=== PATIENT | male | born 1985 | race Hispanic/Latino ===

== ENCOUNTER 2021-04-03 07:17 | Emergency (ER) | payer SELFPAY ==
[2021-04-03] MEDS ORDERED: Morphine 4 MG/ML VIAL ONE (07:40)
[2021-04-03] MEDS ORDERED: Ondansetron PF 4 MG/2 ML Vial ONE (07:40)
[2021-04-03 08:00] LABS: #Lymphocytes 1.2 thou/uL (1.20-3.40); #Monocytes 0.4 thou/uL (0.11-0.59); #Neutrophils 2.5 thou/uL (1.40-6.50); %Basophils 0.7 % (0.0-1.0); %Lymphocytes 29.3 % (21.0-51.0); %Monocytes 9.5 % (0.0-10.0); %Neutrophils 59.6 % (42.0-75.0); Hemoglobin 15.5 g/dL (14.0-18.0); Mean Corpuscular HGB CONC 35.6 g/dL (32.0-36.0); Mean Corpuscular Hemoglobin 35.7 pg (27.0-31.0); Mean Platelet Volume 7.7 fL (7.4-10.4); Platelet Count 240 thou/uL (130-400); RBC Distribution Width 11.4 % (11.5-14.5); Red Blood Cell (RBC) Count 4.33 mill/uL (4.70-6.10); White Blood Cell (WBC) Count 4.2 thou/uL (4.8-10.8)
[2021-04-03 08:20] LABS: ALT (SGPT) 14 U/L (8-55); AST (SGOT) 19 U/L (5-34); Albumin 4.4 g/dL (3.5-5.0); Alkaline Phosphatase 58 U/L (40-110); Anion Gap 12 mmol/L (10-20); BUN (Urea Nitrogen) 8 mg/dL (8.9-20.6); Bilirubin, Total 1.9 mg/dL (0.2-1.2); Calc. Creatinine Clearance 0 mL/min (70-130); Calcium 9.5 mg/dL (7.8-10.44); Carbon Dioxide 25 mmol/L (22-29); Chloride 105 mmol/L (98-107); Globulin 3.2 g/dL (2.4-3.5); Glucose 97 mg/dL (70-105); Lipase 22 U/L (8-78); Potassium 3.3 mmol/L (3.5-5.1); Protein, Total 7.6 g/dL (6.0-8.3); Sodium 139 mmol/L (136-145)
[2021-04-03] MEDS ORDERED: Iopamidol-370 76% 500 ML 1 ML ONE (11:07)
== END 2021-04-03 09:31 | disposition home or self-care (01) ==
LOC: ERS 07:17
DX: R10.9 Unspecified abdominal pain (principal); R10.814 Left lower quadrant abdominal tenderness; R10.813 Right lower quadrant abdominal tenderness; R19.7 Diarrhea, unspecified
CPT/HCPCS: 71045; 74177; 80053; 83690; 85025; 96374; 96375; J2270; J2405; Q9967

== ENCOUNTER 2021-05-07 06:24 | Emergency (ER) | payer SELFPAY ==
[2021-05-07] MEDS ORDERED: Ondansetron PF 4 MG/2 ML Vial ONE (06:42)
[2021-05-07] MEDS ORDERED: Morphine 4 MG/ML VIAL ONE ×2 (06:47→09:10)
[2021-05-07 07:05] LABS: #Lymphocytes 1.2 thou/uL (1.20-3.40); #Monocytes 0.6 thou/uL (0.11-0.59); #Neutrophils 4.6 thou/uL (1.40-6.50); %Basophils 0.6 % (0.0-1.0); %Eosinophils 0.3 % (0.0-10.0); %Lymphocytes 19.1 % (21.0-51.0); %Monocytes 9.1 % (0.0-10.0); %Neutrophils 70.9 % (42.0-75.0); Hemoglobin 16.4 g/dL (14.0-18.0); Mean Corpuscular HGB CONC 35.7 g/dL (32.0-36.0); Mean Platelet Volume 8.3 fL (7.4-10.4); Platelet Count 259 thou/uL (130-400); RBC Distribution Width 11.5 % (11.5-14.5); Red Blood Cell (RBC) Count 4.56 mill/uL (4.70-6.10); White Blood Cell (WBC) Count 6.5 thou/uL (4.8-10.8)
[2021-05-07 07:21] LABS: ALT (SGPT) 17 U/L (8-55); AST (SGOT) 22 U/L (5-34); Albumin 4.5 g/dL (3.5-5.0); Alkaline Phosphatase 65 U/L (40-110); Anion Gap 16 mmol/L (10-20); BUN (Urea Nitrogen) 13 mg/dL (8.9-20.6); Bilirubin, Total 2.9 mg/dL (0.2-1.2); Calc. Creatinine Clearance 0 mL/min (70-130); Carbon Dioxide 22 mmol/L (22-29); Chloride 104 mmol/L (98-107); Globulin 3.7 g/dL (2.4-3.5); Glucose 114 mg/dL (70-105); Lipase 28 U/L (8-78); Potassium 3.3 mmol/L (3.5-5.1); Protein, Total 8.2 g/dL (6.0-8.3); Sodium 139 mmol/L (136-145)
[2021-05-07] MEDS ORDERED: Lidocaine Viscous Sol 2% 15 ml UD Cup ONE (07:57)
[2021-05-07] MEDS ORDERED: Pantoprazole 40 MG VIAL ONE (07:57)
[2021-05-07] MEDS ORDERED: Mag-Al 1200 mg/1200 mg/30 ML UDCUP ONE (07:57)
[2021-05-07] MEDS ORDERED: Iopamidol-370 76% 500 ML 1 ML ONE (09:40)
== END 2021-05-07 11:10 | disposition home or self-care (01) ==
LOC: ERS 06:24
DX: K20.90 Esophagitis, unspecified without bleeding (principal); E80.6 Other disorders of bilirubin metabolism
CPT/HCPCS: 74177; 80053; 83690; 84484; 85025; 96374; 96375; 96376; C9113; J2270; J2405; Q9967

== ENCOUNTER 2021-06-08 04:29 | Emergency (ER) | payer SELFPAY ==
[2021-06-08] MEDS ORDERED: Haloperidol Lactate 5 MG/ML VIAL ONE (04:59)
[2021-06-08 05:58] LABS: #Lymphocytes 1.5 thou/uL (1.20-3.40); #Monocytes 0.4 thou/uL (0.11-0.59); #Neutrophils 2.2 thou/uL (1.40-6.50); %Basophils 0.1 % (0.0-1.0); %Lymphocytes 35.6 % (21.0-51.0); %Monocytes 9.4 % (0.0-10.0); Hemoglobin 15.1 g/dL (14.0-18.0); Mean Corpuscular HGB CONC 36.2 g/dL (32.0-36.0); Mean Corpuscular Volume 99.4 fL (78.0-98.0); Mean Platelet Volume 7.9 fL (7.4-10.4); Platelet Count 224 thou/uL (130-400); RBC Distribution Width 11.2 % (11.5-14.5); White Blood Cell (WBC) Count 4.1 thou/uL (4.8-10.8)
[2021-06-08] MEDS ORDERED: Sucralfate 1 GM/10 ML UDCUP ONE (06:12)
[2021-06-08 06:24] LABS: ALT (SGPT) 21 U/L (8-55); AST (SGOT) 22 U/L (5-34); Albumin 4.2 g/dL (3.5-5.0); Alkaline Phosphatase 56 U/L (40-110); Anion Gap 14 mmol/L (10-20); BUN (Urea Nitrogen) 7 mg/dL (8.9-20.6); Bilirubin, Total 1.2 mg/dL (0.2-1.2); Calc. Creatinine Clearance 0 mL/min (70-130); Calcium 9.4 mg/dL (7.8-10.44); Carbon Dioxide 20 mmol/L (22-29); Chloride 105 mmol/L (98-107); Globulin 3.2 g/dL (2.4-3.5); Glucose 89 mg/dL (70-105); Lipase 39 U/L (8-78); Potassium 3.3 mmol/L (3.5-5.1); Protein, Total 7.4 g/dL (6.0-8.3); Sodium 136 mmol/L (136-145)
[2021-06-08] MEDS ORDERED: diphenhydrAMINE 50 MG/ML VIAL ONE (06:58)
[2021-06-08 07:26] LABS: Bilirubin Negative (Negative); Blood, Urine Negative (Negative); Clarity Clear (Clear); Glucose, Urine (Dipstick) Normal (Negative); Ketone, Urine 20 mg/dL (Negative); Leukocyte Negative Leu/uL (Negative); Nitrite Negative (Negative); Protein, Urine (Dipstick) 10 mg/dL (Neg-Trace); Specific Gravity, Urine 1.019 (1.002-1.036); Urobilinogen 3 mg/dL (Less than 2)
[2021-06-08 07:32] LABS: Amphetamine Not Detected (NotDetected); Barbiturates Screen Not Detected (NotDetected); Benzodiazepine Screen Not Detected (NotDetected); Cocaine Metabolite Screen Not Detected (NotDetected); Methadone Not Detected (NotDetected); Methamphetamine Not Detected (NotDetected); Opiate Screen Not Detected (NotDetected); Oxycodone Screen Not Detected (NotDetected); Phencyclidine (PCP) Not Detected (NotDetected); THC/Cannabinoid Screen Detected (NotDetected); Tricyclic Screen Not Detected (NotDetected)
== END 2021-06-08 07:34 | disposition home or self-care (01) ==
LOC: ERS 04:29
DX: R10.13 Epigastric pain (principal); R11.2 Nausea with vomiting, unspecified; Z79.899 Other long term (current) drug therapy
CPT/HCPCS: 80053; 80306; 81003; 83690; 85025; 96374; 96375; J1200; J1630

== ENCOUNTER 2021-06-21 06:23 | Emergency (ER) | payer SELFPAY ==
[2021-06-21 08:17] LABS: #Lymphocytes 1.1 thou/uL (1.20-3.40); #Monocytes 0.4 thou/uL (0.11-0.59); #Neutrophils 3.6 thou/uL (1.40-6.50); %Basophils 0.1 % (0.0-1.0); %Eosinophils 0.7 % (0.0-10.0); %Lymphocytes 21.8 % (21.0-51.0); %Monocytes 8.4 % (0.0-10.0); Hemoglobin 15.7 g/dL (14.0-18.0); Mean Corpuscular HGB CONC 34.7 g/dL (32.0-36.0); Mean Corpuscular Hemoglobin 35.2 pg (27.0-31.0); Mean Platelet Volume 7.7 fL (7.4-10.4); Platelet Count 231 thou/uL (130-400); RBC Distribution Width 11.4 % (11.5-14.5); Red Blood Cell (RBC) Count 4.47 mill/uL (4.70-6.10); White Blood Cell (WBC) Count 5.2 thou/uL (4.8-10.8)
[2021-06-21 08:23] LABS: Bilirubin Negative (Negative); Blood, Urine Negative (Negative); Clarity Clear (Clear); Glucose, Urine (Dipstick) Normal (Negative); Ketone, Urine 40 mg/dL (Negative); Leukocyte Negative Leu/uL (Negative); Nitrite Negative (Negative); Protein, Urine (Dipstick) 10 mg/dL (Neg-Trace); Specific Gravity, Urine 1.024 (1.002-1.036); Urobilinogen Normal mg/dL (Less than 2); pH, Urine 6.5 (5.0-9.0)
[2021-06-21 08:30] LABS: ALT (SGPT) 30 U/L (8-55); AST (SGOT) 31 U/L (5-34); Albumin 4.4 g/dL (3.5-5.0); Alkaline Phosphatase 61 U/L (40-110); Anion Gap 13 mmol/L (10-20); BUN (Urea Nitrogen) 12 mg/dL (8.9-20.6); Bilirubin, Total 1.5 mg/dL (0.2-1.2); Calc. Creatinine Clearance 0 mL/min (70-130); Calcium 9.8 mg/dL (7.8-10.44); Carbon Dioxide 23 mmol/L (22-29); Chloride 105 mmol/L (98-107); Globulin 3.2 g/dL (2.4-3.5); Glucose 105 mg/dL (70-105); Potassium 3.5 mmol/L (3.5-5.1); Protein, Total 7.6 g/dL (6.0-8.3); Sodium 137 mmol/L (136-145)
[2021-06-21] MEDS ORDERED: Morphine 4 MG/ML VIAL ONE (09:02)
[2021-06-21] MEDS ORDERED: Famotidine/PF 20 mg/2ml Vial ONE (09:02)
[2021-06-21] MEDS ORDERED: Mag-Al 1200 mg/1200 mg/30 ML UDCUP ONE (09:02)
[2021-06-21] MEDS ORDERED: Acetaminophen 500 MG TAB ONE (09:02)
[2021-06-21] MEDS ORDERED: Ondansetron PF 4 MG/2 ML Vial ONE ×2 (09:02→10:23)
[2021-06-21] MEDS ORDERED: Lidocaine Viscous Sol 2% 15 ml UD Cup ONE (09:02)
[2021-06-21] MEDS ORDERED: diphenhydrAMINE 50 MG/ML VIAL ONE (10:23)
[2021-06-21] MEDS ORDERED: Haloperidol Lactate 5 MG/ML VIAL ONE (10:23)
[2021-06-21] MEDS ORDERED: Iopamidol-370 76% 500 ML 1 ML ONE (13:29)
== END 2021-06-21 11:28 | disposition home or self-care (01) ==
LOC: ERS 06:23
DX: R11.2 Nausea with vomiting, unspecified (principal); R10.13 Epigastric pain; M54.5 Low back pain; K21.9 Gastro-esophageal reflux disease without esophagitis; Z87.891 Personal history of nicotine dependence
CPT/HCPCS: 36415; 74177; 80053; 81003; 83690; 85025; 96374; 96375; 96376; J1200; J1630; J2270; J2405; Q9967; S0028

== ENCOUNTER 2021-08-12 15:06 | Emergency (ER) | payer SELFPAY ==
[2021-08-12] MEDS ORDERED: Ondansetron PF 4 MG/2 ML Vial ONE (15:39)
[2021-08-12] MEDS ORDERED: Mag-Al 1200 mg/1200 mg/30 ML UDCUP ONE ×2 (15:51→15:54)
[2021-08-12] MEDS ORDERED: Lidocaine 2% PF 100 mg/5 ml Syringe ONE (15:51)
[2021-08-12] MEDS ORDERED: Lidocaine Viscous Sol 2% 15 ml UD Cup ONE (15:54)
[2021-08-12 15:57] LABS: #Lymphocytes 1.1 thou/uL (1.20-3.40); #Monocytes 0.5 thou/uL (0.11-0.59); #Neutrophils 3.9 thou/uL (1.40-6.50); %Basophils 0.4 % (0.0-1.0); %Eosinophils 0.2 % (0.0-10.0); %Neutrophils 70.4 % (42.0-75.0); Hemoglobin 16.9 g/dL (14.0-18.0); Mean Corpuscular HGB CONC 35.5 g/dL (32.0-36.0); Mean Corpuscular Hemoglobin 35.6 pg (27.0-31.0); Mean Platelet Volume 7.6 fL (7.4-10.4); Platelet Count 222 thou/uL (130-400); RBC Distribution Width 11.3 % (11.5-14.5); Red Blood Cell (RBC) Count 4.74 mill/uL (4.70-6.10); White Blood Cell (WBC) Count 5.6 thou/uL (4.8-10.8)
[2021-08-12 16:15] LABS: ALT (SGPT) 18 U/L (8-55); AST (SGOT) 25 U/L (5-34); Alkaline Phosphatase 52 U/L (40-110); Anion Gap 20 mmol/L (10-20); BUN (Urea Nitrogen) 11 mg/dL (8.9-20.6); Bilirubin, Total 1.9 mg/dL (0.2-1.2); Calc. Creatinine Clearance 0 mL/min (70-130); Calcium 9.2 mg/dL (7.8-10.44); Carbon Dioxide 17 mmol/L (22-29); Chloride 103 mmol/L (98-107); Globulin 2.7 g/dL (2.4-3.5); Glucose 111 mg/dL (70-105); Potassium 3.5 mmol/L (3.5-5.1); Protein, Total 6.7 g/dL (6.0-8.3); Sodium 136 mmol/L (136-145)
== END 2021-08-12 15:50 | disposition home or self-care (01) ==
LOC: ERS 15:06
DX: R11.2 Nausea with vomiting, unspecified (principal); R10.84 Generalized abdominal pain; K21.9 Gastro-esophageal reflux disease without esophagitis; Z87.891 Personal history of nicotine dependence
CPT/HCPCS: 80053; 85025; 96374; J2001; J2405

== ENCOUNTER 2021-11-05 22:59 | Emergency (ER) | payer SELFPAY ==
[2021-11-05 23:41] LABS: #Lymphocytes 0.8 thou/uL (1.20-3.40); #Monocytes 0.9 thou/uL (0.11-0.59); #Neutrophils 5.4 thou/uL (1.40-6.50); %Basophils 0.3 % (0.0-1.0); %Eosinophils 0.3 % (0.0-10.0); %Lymphocytes 11.2 % (21.0-51.0); %Monocytes 12.3 % (0.0-10.0); %Neutrophils 75.9 % (42.0-75.0); Hemoglobin 16.2 g/dL (14.0-18.0); Mean Corpuscular HGB CONC 34.6 g/dL (32.0-36.0); Mean Corpuscular Hemoglobin 35.3 pg (27.0-31.0); Mean Platelet Volume 6.8 fL (7.4-10.4); Platelet Count 270 thou/uL (130-400); RBC Distribution Width 11.2 % (11.5-14.5); Red Blood Cell (RBC) Count 4.59 mill/uL (4.70-6.10); White Blood Cell (WBC) Count 7.1 thou/uL (4.8-10.8)
[2021-11-05] MEDS ORDERED: Haloperidol Lactate 5 MG/ML VIAL ONE (23:54)
[2021-11-06 00:01] LABS: Bilirubin, Total 2.1 mg/dL (0.2-1.2); Calcium 9.9 mg/dL (7.8-10.44); Potassium 3.6 mmol/L (3.5-5.1)
[2021-11-06 00:06] LABS: Albumin 4.7 g/dL (3.5-5.0); Globulin 3.4 g/dL (2.4-3.5); Protein, Total 8.1 g/dL (6.0-8.3)
[2021-11-06 00:17] LABS: Critical Call Chemistry 21.6
[2021-11-06] MEDS ORDERED: Mag-Al 1200 mg/1200 mg/30 ML UDCUP ONE (00:36)
[2021-11-06] MEDS ORDERED: Lidocaine Viscous Sol 2% 15 ml UD Cup ONE (00:36)
== END 2021-11-06 01:30 | disposition home or self-care (01) ==
LOC: ERS 22:59
DX: R10.13 Epigastric pain (principal); R11.2 Nausea with vomiting, unspecified; Z87.891 Personal history of nicotine dependence
CPT/HCPCS: 36415; 80053; 83690; 85025; 96374; J1630

== ENCOUNTER 2021-12-19 08:58 | Emergency (ER) | payer SELFPAY ==
[2021-12-19] MEDS ORDERED: Ketorolac Tromethamine 30 MG/ML VIAL ONE (10:22)
[2021-12-19] MEDS ORDERED: Haloperidol Lactate 5 MG/ML VIAL ONE (10:22)
[2021-12-19 10:58] LABS: #Lymphocytes 0.6 thou/uL (1.20-3.40); #Monocytes 0.3 thou/uL (0.11-0.59); #Neutrophils 4.7 thou/uL (1.40-6.50); %Basophils 0.2 % (0.0-1.0); %Eosinophils 0.2 % (0.0-10.0); %Monocytes 5.2 % (0.0-10.0); %Neutrophils 83.4 % (42.0-75.0); Hemoglobin 16.1 g/dL (14.0-18.0); Mean Corpuscular HGB CONC 35.1 g/dL (32.0-36.0); Mean Corpuscular Hemoglobin 35.8 pg (27.0-31.0); Mean Platelet Volume 8.2 fL (7.4-10.4); Platelet Count 262 thou/uL (130-400); RBC Distribution Width 11.3 % (11.5-14.5); White Blood Cell (WBC) Count 5.7 thou/uL (4.8-10.8)
[2021-12-19 11:20] LABS: ALT (SGPT) 21 U/L (8-55); AST (SGOT) 26 U/L (5-34); Albumin 4.9 g/dL (3.5-5.0); Alkaline Phosphatase 62 U/L (40-110); Anion Gap 20 mmol/L (10-20); BUN (Urea Nitrogen) 12 mg/dL (8.9-20.6); Bilirubin, Total 2.2 mg/dL (0.2-1.2); Calc. Creatinine Clearance 0 mL/min (70-130); Calcium 10.1 mg/dL (7.8-10.44); Carbon Dioxide 19 mmol/L (22-29); Chloride 103 mmol/L (98-107); Globulin 3.4 g/dL (2.4-3.5); Glucose 104 mg/dL (70-105); Lipase 27 U/L (8-78); Potassium 3.5 mmol/L (3.5-5.1); Protein, Total 8.3 g/dL (6.0-8.3); Sodium 138 mmol/L (136-145)
[2021-12-19 11:56] LABS: Bacteria/HPF None Seen HPF (None Seen); Bilirubin Negative (Negative); Blood, Urine Negative (Negative); Clarity Clear (Clear); Glucose, Urine (Dipstick) Normal (Negative); Ketone, Urine 100 mg/dL (Negative); Leukocyte Negative Leu/uL (Negative); Nitrite Negative (Negative); Protein, Urine (Dipstick) 70 mg/dL (Neg-Trace); RBC/HPF 0-3 HPF (0-3); Specific Gravity, Urine 1.032 (1.002-1.036); Squamous Epithelial 0-3 HPF (0-3); Urobilinogen 3 mg/dL (Less than 2); WBC/HPF 0-3 HPF (0-3)
== END 2021-12-19 12:32 | disposition home or self-care (01) ==
LOC: ERS 08:58
DX: R10.84 Generalized abdominal pain (principal); R51.9 Headache, unspecified; R11.2 Nausea with vomiting, unspecified; R10.816 Epigastric abdominal tenderness; K21.9 Gastro-esophageal reflux disease without esophagitis; Z87.891 Personal history of nicotine dependence
CPT/HCPCS: 80053; 81003; 81015; 82150; 83690; 85025; 96374; 96375; J1630; J1885